=== PATIENT | male | born 1970 | race Caucasian/White ===

== ENCOUNTER 2016-09-29 16:51 | Emergency (ER) | payer OTHER ==
[2016-09-29] MEDS ORDERED: Zofran 4 MG/2 ML VIAL IV ONE (17:24)
[2016-09-29] MEDS ORDERED: Hydromorphone 1 mg/ml Ampule IV ONE (17:24)
--- NOTE | 2016-09-29 17:29 | ERPHSYRPT ---
- History of Present Illness Time Seen by Provider: 09/29/16 17:19 Historian: patient, family () Patient Subjective Stated Complaint: Pt states he started having left upper quad abdominal pain last night around 11pm. He had a spell of diarrhea x1 and vomiting x1. He has been having hot flashes. Denies any n/v/d at this present time. Only complaint is LUQ pain. Triage Nursing Assessment: Pt alert and oriented x3. skin pink warm and dry. afebrile. abomen soft, tender in left upper quad. bowel sounds present x4 Physician History: CC: abd pain Hx: 46 y/o patient of Dr Coronel with hx of colon resection for diverticular disease. He has left upper abd pain since 11PM yesterday. Some nausea. Normal urination. No chest pain or cough. Not passing blood. Pain is waxing and waning and sharp in nature. No fall or injury. Timing/Duration: yesterday Severity of Pain-Max: moderate Severity of Pain-Current: moderate Allergies/Adverse Reactions: No Known Drug Allergies Allergy (Unverified 09/29/16 17:08) Home Medications: Atorvastatin Calcium [Lipitor] 20 mg PO DAILY 09/29/16 [History] Empagliflozin [Jardiance] 10 mg PO DAILY 09/29/16 [History] Metformin HCl 500 mg [Glucophage 500 MG] 500 mg PO BID 09/29/16 [History] Hx Tetanus, Diphtheria Vaccination/Date Given: (unknown) Hx Influenza Vaccination/Date Given: No - Review of Systems Constitutional: Malaise, No Fever, No Chills Eyes: No Symptoms Ears, Nose, & Throat: No Symptoms Respiratory: No Cough, No Dyspnea Cardiac: No Chest Pain Abdominal/Gastrointestinal: Abdominal Pain, Nausea, No Vomiting, No Hematochezia Genitourinary Symptoms: No Dysuria, No Hematuria Musculoskeletal: No Back Pain Skin: No Rash Neurological: No Focal Weakness, No Headache, No Parasthesia All Other Systems: Reviewed and Negative - Past Medical History Pertinent Past Medical History: Yes Cardiac History: High Cholesterol Endocrine Medical History: Diabetes Type II - Past Surgical History Past Surgical History: Yes Gastrointestinal: Appendectomy, Colon Resection, Hernia Repair Musculoskeletal: Orthopedic Surgery Other Surgical History: left ankle - Social History Smoking Status: Former smoker Exposure to second hand smoke: Yes Drug Use: none Patient Lives Alone: No - Nursing Vital Signs Nursing Vital Signs: Initial Vital Signs Temperature 98.1 F Temperature Source Oral Pulse Rate 70 Respiratory Rate 16 Blood Pressure [Left Arm] 103/68 Pain Intensity 3 - Physical Exam General Appearance: alert, obese, other (pleasant man) Eye Exam: PERRL/EOMI Ears, Nose, Throat Exam: normal ENT inspection, moist mucous membranes Neck Exam: normal inspection, non-tender, supple Respiratory Exam: normal breath sounds, lungs clear Cardiovascular Exam: regular rate/rhythm, No murmur Gastrointestinal/Abdomen Exam: soft, tenderness (mid left abdomen) Male Genitalia Exam: normal genitalia, No hernia, No testicular tenderness Back Exam: normal inspection, normal range of motion, No CVA tenderness Extremity Exam: normal inspection, normal range of motion, No calf tenderness, No pedal edema Neurologic Exam: alert, oriented x 3, cooperative, sensation nml, No motor deficits Skin Exam: warm, dry, No rash SpO2 Interpretation: normal SpO2: 94 Oxygen Delivery: Room Air - Course Nursing assessment & vital signs reviewed: Yes EKG Interpreted by Me: RATE (71), Sinus Rhythm, NORMAL AXIS, NORMAL INTERVALS ( QTc 420), NORMAL QRS, NORMAL ST-T Ordered Tests: Active Orders 24 hr Category Date Time Status Clean Catch Urine Specimen STAT Care 09/29/16 17:24 Active EKG-ER Only STAT Care 09/29/16 17:24 Active IV Insertion STAT Care 09/29/16 17:24 Active NPO (ED) STAT Care 09/29/16 17:24 Active ABDOMEN AND PELVIS W CONTRAST [CT] Stat Exams 09/29/16 17:24 Taken CBC W DIFF Stat Lab 09/29/16 17:30 Completed CMP Stat Lab 09/29/16 17:30 Completed LIPASE Stat Lab 09/29/16 17:30 Completed Lactic Acid Stat Lab 09/29/16 17:30 Completed UA W/ MICROSCOPIC Stat Lab 09/29/16 17:58 Completed Medication Summary Generic Name Dose Route Start Last Admin Trade Name Freq PRN Reason Stop Dose Admin Sodium Chloride 1,000 mls @ 100 mls/hr 09/29/16 17:30 09/29/16 17:45 Sodium Chloride 0.9% 1000 Ml IV 10/29/16 17:29 100 mls/hr .Q10H JARROD Administration Discontinued Medications Generic Name Dose Route Start Last Admin Trade Name Freq PRN Reason Stop Dose Admin Hydromorphone HCl 1 mg 09/29/16 17:24 09/29/16 17:45 Hydromorphone 1 Mg/Ml Ampule IV 09/29/16 17:25 1 mg STAT ONE Administration Hydromorphone HCl Confirm 09/29/16 17:43 Hydromorphone 1 Mg/Ml Ampule Administered 09/29/16 17:44 Dose 1 mg .ROUTE .STK-MED ONE Ondansetron HCl 4 mg 09/29/16 17:24 09/29/16 17:45 Zofran 4 Mg/2 Ml Vial IV 09/29/16 17:25 4 mg STAT ONE Administration Ondansetron HCl Confirm 09/29/16 17:43 Zofran 4 Mg/2 Ml Vial Administered 09/29/16 17:44 Dose 4 mg .ROUTE .STK-MED ONE Lab/Rad Data: Laboratory Result Diagrams 09/29/16 17:30 09/29/16 17:30 Laboratory Results 09/29/16 09/29/16 09/29/16 Range/Units 17:58 17:30 17:30 WBC (4.0-10.5) K/mm3 RBC (4.1-5.6) M/mm3 Hgb (12.5-18.0) gm/dl Hct (42-50) % MCV (78-100) fl MCH (26-32) pg MCHC (32-36) g/dl RDW (11.5-14.0) % Plt Count (150-450) K/mm3 MPV (6-9.5) fl Gran % (36.0-66.0) % Lymphocytes % (24.0-44.0) % Monocytes % (0.0-12.0) % Eosinophils % (0.00-5.0) % Basophils % (0.0-0.4) % Basophils # (0-0.4) Sodium 140 (136-145) mEq/L Potassium 3.7 (3.5-5.1) mEq/L Chloride 103 (98-107) mEq/L Carbon Dioxide 23.5 (21-32) mEq/L Anion Gap 16.9 H (5-15) MEQ/L BUN 18 (9-20) mg/dL Creatinine 1.08 (0.55-1.30) mg/dl Estimated GFR > 60 ML/MIN Glucose 162 H (70-110) MG/DL Lactic Acid 1.9 (0.4-2.0) Calcium 10.0 (8.5-10.1) mg/dL Total Bilirubin 0.6 (0.2-1.0) mg/dL AST 22 (15-37) U/L ALT 44 (12-78) U/L Alkaline Phosphatase 85 (46-116) U/L Serum Total Protein 7.7 (6.4-8.2) gm/dL Albumin 3.9 (3.4-5.0) g/dL Lipase 349 (73-393) U/L Ur Collection Type CCMS Urine Color YELLOW (YELLOW) Urine Appearance CLEAR (CLEAR) Urine pH 5.0 (5-6) Ur Specific [place] 1.020 (1.005-1.025) Urine Protein 30 (Negative) Urine Glucose (UA) 500 (NEGATIVE) mg/dL Urine Ketones NEGATIVE (NEGATIVE) Urine Nitrite NEGATIVE (NEGATIVE) Urine Bilirubin NEGATIVE (NEGATIVE) Urine Urobilinogen 0.2 (0-1) mg/dL Urine WBC (Auto) NEGATIVE (NEGATIVE) Urine RBC (Auto) NEGATIVE (0-5) John/ul Urine Microscopic WBC 0-2 (0-5) /HPF Specimen Received 09-29-16 1804 09/29/16 Range/Units 17:30 WBC 10.4 (4.0-10.5) K/mm3 RBC 5.63 H (4.1-5.6) M/mm3 Hgb 16.9 (12.5-18.0) gm/dl Hct 49.5 (42-50) % MCV 87.9 (78-100) fl MCH 30.0 (26-32) pg MCHC 34.1 (32-36) g/dl RDW 13.3 (11.5-14.0) % Plt Count 215 (150-450) K/mm3 MPV 9.4 (6-9.5) fl Gran % 60.6 (36.0-66.0) % Lymphocytes % 28.3 (24.0-44.0) % Monocytes % 9.3 (0.0-12.0) % Eosinophils % 1.2 (0.00-5.0) % Basophils % 0.6 (0.0-0.4) % Basophils # 0.06 (0-0.4) Sodium (136-145) mEq/L Potassium (3.5-5.1) mEq/L Chloride (98-107) mEq/L Carbon Dioxide (21-32) mEq/L Anion Gap (5-15) MEQ/L BUN (9-20) mg/dL Creatinine (0.55-1.30) mg/dl Estimated GFR ML/MIN Glucose (70-110) MG/DL Lactic Acid (0.4-2.0) Calcium (8.5-10.1) mg/dL Total Bilirubin (0.2-1.0) mg/dL AST (15-37) U/L ALT (12-78) U/L Alkaline Phosphatase (46-116) U/L Serum Total Protein (6.4-8.2) gm/dL Albumin (3.4-5.0) g/dL Lipase (73-393) U/L Ur Collection Type Urine Color (YELLOW) Urine Appearance (CLEAR) Urine pH (5-6) Ur Specific [place] (1.005-1.025) Urine Protein (Negative) Urine Glucose (UA) (NEGATIVE) mg/dL Urine Ketones (NEGATIVE) Urine Nitrite (NEGATIVE) Urine Bilirubin (NEGATIVE) Urine Urobilinogen (0-1) mg/dL Urine WBC (Auto) (NEGATIVE) Urine RBC (Auto) (0-5) John/ul Urine Microscopic WBC (0-5) /HPF Specimen Received - Progress Progress Note: 09/29/16 17:[address] to assess for diverticular disease. 09/29/16 19:42 CT abd/pelvis: lo 7:32 PM 09/29/2016: No comps. Mild fluid distended small bowel loops predominately L abdomen w/ wall thickening favoring enteritis.Minimal scattered colonic diverticulosis w/o diverticulitis. Fatty liver. B/L L5 spondylolysis w/ minimal spondylolisthesis. Remaining abd/pel negative. 09/29/16 19:45 Pt feels better. Labs reassuring. Abd soft. Offered obs or home with abtx. He wants to go home. Instr given. Counseled pt/family regarding: lab results, diagnosis, need for follow-up, rad results - Departure Time of Disposition: 19:46 Departure Disposition: Home Clinical Impression: Left lateral abdominal pain, Colitis Condition: Fair Critical Care Time: No Referrals: KAREN CORONEL MD [Primary Care Provider] - Instructions: Abdominal Pain-Adult Additional Instructions: ABDOMINAL PAIN 1. There are several different causes for abdominal pain, some of which may not be able to be identified on initial examination. 2. The important thing to remember is that bodily functions can change in a short period of time. If you notice any of the following symptoms, return to the emergency department or consult your doctor immediately: A. Worsening pain or no improvement in the next 12 hours. B. Increasing, severe abdominal pain C. Blood in stool D. Black stools E. Persistent vomiting F. Fever or chills or other symptoms Rx cipro Rx flagyl- no alcohol use Follow up with Dr Coronel Thursday. No driving tonite and stay with family. Prescriptions: Ciprofloxacin [Cipro 500 MG] 1 tab PO BID #20 tablet Metronidazole 500 mg [Flagyl 500 MG] 500 mg PO BID #20 tablet
[2016-09-29] MEDS ORDERED: Sodium Chloride 0.9% 1000 ML 1,000 ML IV SCH (17:30)
[2016-09-29 17:38] LABS: BASOPHIL % 0.6 % (0.0-0.4); Eosinophil % 1.2 % (0.00-5.0); Granulocytes % 60.6 % (36.0-66.0); Lymphocytes % 28.3 % (24.0-44.0); Mean Cell Volume 87.9 fl (78-100); Mean Platelet Volume 9.4 fl (6-9.5); Monocytes % 9.3 % (0.0-12.0); Platelet Count 215 K/mm3 (150-450); Red Blood Count 5.63 M/mm3 (4.1-5.6); Red Cell Distribution Width 13.3 % (11.5-14.0); White Blood Count 10.4 K/mm3 (4.0-10.5)
[2016-09-29] MEDS ORDERED: Zofran 4 MG/2 ML VIAL ONE (17:43)
[2016-09-29] MEDS ORDERED: Hydromorphone 1 mg/ml Ampule ONE (17:43)
[2016-09-29] MEDS ORDERED: Sodium Chloride 0.9% 1000 ML 1,000 ML ONE (17:43)
[2016-09-29 17:51] LABS: ALBUMIN 3.9 g/dL (3.4-5.0); ALKALINE PHOSPHATASE 85 U/L (46-116); ANION GAP 16.9 MEQ/L (5-15); BILIRUBIN,TOTAL 0.6 mg/dL (0.2-1.0); BLOOD UREA NITROGEN 18 mg/dL (9-20); CHLORIDE 103 mEq/L (98-107); Carbon Dioxide 23.5 mEq/L (21-32); Glucose 162 MG/DL (70-110); LIPASE 349 U/L (73-393); Potassium 3.7 mEq/L (3.5-5.1); SGOT/AST 22 U/L (15-37); SGPT/ALT 44 U/L (12-78); SODIUM 140 mEq/L (136-145); Total Protein 7.7 gm/dL (6.4-8.2)
[2016-09-29 18:10] LABS: COMPLETE URINE MICROSCOPIC? YES; Collection Type CCMS; WBC 0-2 /HPF (0-5)
[2016-09-29 20:10] VITALS: BP 116/68; PULSE 62; O2SAT 98
--- NOTE | 2016-09-30 08:41 | XRAY ---
Indication: Left abdominal stabbing pain. Vomiting and diarrhea. Multiple contiguous axial images obtained through the abdomen and pelvis using 80 cc Isovue 370 contrast only. Comparison: None Lung bases demonstrates bibasilar atelectasis/scarring. Heart is not enlarged. Noncontrasted stomach and bowel loops appear nonobstructed. Mild fluid distended small bowel loops predominantly in the left abdomen with some wall thickening and fluid leveling favoring enteritis. Minimal scattered colonic diverticulosis. Previous appendectomy and ventral hernia repair with intact mesh graft. Diffuse fatty liver without focal solid/cystic mass. Remaining liver, gallbladder, pancreas, spleen, adrenal glands, kidneys, ureters, and bladder appear unremarkable. Mild aortoiliac calcifications. No AAA or pathologic retroperitoneal lymphadenopathy. Osseous structures intact with minimal degenerative changes throughout the spine. Also bilateral L5 spondylolysis with minimal 1-2 mm spondylolisthesis. Impression: 1. Fluid distended small bowel loops with wall thickening favoring enteritis. 2. Scattered colonic diverticulosis and fatty liver. 3. Bilateral L5 spondylolysis with minimal grade [address] DI 28.13
== END 2016-09-29 20:10 | disposition home or self-care (01) ==
LOC: ED 16:51
DX: R10.9 Unspecified abdominal pain (principal); K52.9 Noninfective gastroenteritis and colitis, unspecified; R10.12 Left upper quadrant pain; R11.0 Nausea; R19.7 Diarrhea, unspecified; R11.10 Vomiting, unspecified; Z79.84 Long term (current) use of oral hypoglycemic drugs; Z79.899 Other long term (current) drug therapy; E11.9 Type 2 diabetes mellitus without complications; E78.00 Pure hypercholesterolemia, unspecified
CPT/HCPCS: 36000; 36415; 74177; 80053; 81000; 83605; 83690; 85025; 93005; 96360; 96361; 96374; 96375; 99284; J1170; J2405

== ENCOUNTER 2019-05-23 08:56 | Day surgery (SDC) | payer BC ==
--- NOTE | 2019-05-23 08:07 | HP ---
DATE OF SURGERY: 05/23/2019 HISTORY OF PRESENT ILLNESS: The patient is a 48 year-old last colonoscopy ten years ago. He had prior history of resection for some diverticulitis in the past. He has had two hernia repairs in the past. No bloody stools. No change in bowel movements. Family history negative for colon cancer. He is in need of follow up screening colonoscopy. PAST MEDICAL HISTORY: Diabetes. He has had some diverticular disease in the past. PAST SURGICAL HISTORY: Hernia repairs in the past. Resection for what sounds like diverticular disease in the past. MEDICATIONS: Metformin. Atorvastatin. Jardiance. Trulicity. ALLERGIES: NKDA. FAMILY HISTORY: Negative for colon cancer. SOCIAL HISTORY: No smoking or alcohol abuse. REVIEW OF SYSTEMS: Fourteen systems reviewed. No chest pain or palpitations other systems negative or noncontributory as above and per preadmission questionnaire. PHYSICAL EXAMINATION: GENERAL: No acute distress. HEENT: Sclerae nonicteric. NECK: No JVD. CHEST: Equal excursion, nonlabored breathing. CVS: Regular rate and rhythm. ABDOMEN: Soft. No peritoneal signs. EXTREMITIES: No significant edema. NEURO: Alert, oriented, moving extremities symmetrically. No gross motor deficits noted. RECTAL: Deferred timed to endoscopy exam. IMPRESSION: He is in need of follow up screening colonoscopy. I feel he is a candidate. Risks and benefits explained in detail, not limited to bleeding or infection, risk of bowel injury or perforation possibly requiring open procedure, risk of missed or nondiagnosis or incomplete exam possibly requiring barium enema, other studies or procedures, general risk of anesthesia or sedation but not limited to. He understands and agrees to the planned procedure, will proceed with outpatient follow up screening colonoscopy.
[2019-05-23] MEDS ORDERED: DIPRIVAN 200 MG/20 ML IV ONE ×2 (09:19→10:16)
[2019-05-23] MEDS ORDERED: Ketamine HCl 50 MG/ML ONE (09:20)
[2019-05-23] MEDS: Lactated Ringers 1,000 ML IV SCH (09:25)
[2019-05-23 11:44] VITALS: BP 150/77; PULSE 62; O2SAT 95
--- NOTE | 2019-05-23 14:49 | OP ---
SURGERY DATE/TIME: 05/23/2019 1009 PREOPERATIVE DIAGNOSIS: Need for follow up screening colonoscopy. POSTOPERATIVE DIAGNOSES: 1) Polyps transverse colon. 2) Mild diverticulosis. 3) Very small internal and external hemorrhoids. 4) Fair bowel prep. PROCEDURES: 1) Colonoscopy to terminal ileum. 2) Retrograde ileoscopy. 3) Hot biopsy removal small raised lesion proximal transverse colon. 4) Hot snare polypectomy of transverse colon polyps x2 (two separate polyps removed with hot snare with brief bursts of cautery). SURGEON: Dr. Samir Amato. ANESTHESIA: MAC. ESTIMATED BLOOD LOSS: Minimal. INDICATIONS: As noted above. Risks and benefits explained in detail but not limited to and consent obtained. DESCRIPTION OF PROCEDURE AND FINDINGS: The patient is taken to the operating room. MAC anesthesia introduced. After official time out and no disagreement with planned procedure, digital rectal exam did not reveal rectal masses. He did have some small internal and external hemorrhoids. Video colonoscope inserted and passed up through the tortuous sigmoid, descending, transverse and ascending colon around to the cecum. He had a prior resection I do believe that was in the left side. No evidence of any issues there. Dissected around to the cecum, appendiceal orifice and valve well visualized. There was a little bit of liquidy stool suctioned irrigated as clear as possible with overall fair bowel prep. The scope was able to be passed into the terminal ileum. Retrograde ileoscopy was grossly unremarkable. The scope was slowly and carefully withdrawn. Withdrawal time was about 10 minutes stopping to remove a small, raised lesion versus hyperplastic lesion versus early polyp in the proximal transverse colon removed with hot biopsy forceps with brief bursts of cautery. Good hemostasis noted. There were two other polyps were removed with hot snare polypectomy with brief bursts of cautery. Each was removed with a snare separately and passed off for pathology. Good hemostasis noted. Keeping the polyp in the snare well away from bowel wall. Good hemostasis noted. Scope slowly and carefully withdrawn. He had a few small diverticula. He had some small internal and external hemorrhoids. There are no signs of any large polyps, masses or obstructing lesions. Overall fair prep. The patient tolerated the procedure well. There were no immediate complications. Findings discussed with the family out in the waiting area.
== END 2019-05-23 11:49 | disposition home or self-care (01) ==
LOC: SDC 08:56
PROVIDERS: ATTEND Surgery
DX: Z09 Encounter for follow-up examination after completed treatment for conditions other than malignant neoplasm (principal); Z87.19 Personal history of other diseases of the digestive system; D12.3 Benign neoplasm of transverse colon; K57.30 Diverticulosis of large intestine without perforation or abscess without bleeding; K64.4 Residual hemorrhoidal skin tags; K64.8 Other hemorrhoids; E11.9 Type 2 diabetes mellitus without complications
CPT/HCPCS: 82962; J2704